=== PATIENT | female | born 1990 | race Caucasian/White ===

== ENCOUNTER 2019-12-08 11:30 | Outpatient (CLI) | payer OTHER, SELFPAY ==
--- NOTE | ~2019-12-08 | XR_ITS ---
XR chest 2V DATE: 12/08/2019 11:48 INDICATION: Fever TECHNIQUE: PA and lateral views chest COMPARISON: 01/16/2016 and lateral chest FINDINGS: Normal heart size. No hilar or mediastinal enlargement. No pulmonary infiltrate or consolid ation, pleural effusion or pulmonary vascular congestion or pneumothorax. Surgical clips, right upper quadrant, consistent with cholecystectomy. IMPRESSION: No active cardiopulmonary disease Reviewed, dictated and finalized at location A.
== END 2019-12-08 11:31 | disposition home or self-care (01) ==
PROVIDERS: PCP Family Medicine; Visit Provider Physician Assistant Medical
DX: R50.9 Fever, unspecified (principal)
CPT/HCPCS: 71046

== ENCOUNTER 2020-06-09 09:23 | Emergency (ER) | payer OTHER, SELFPAY ==
[2020-06-09] VITALS (11 sets, daily range): BP systolic 132–150; BP diastolic 72–81; PULSE 76–100; RESP 14–25; TEMP 36.7; O2SAT 97–100
--- NOTE | ~2020-06-09 | XR_ITS ---
XR chest 1V portable DATE: 06/09/2020 09:55 INDICATION: Cough, shortness of breath TECHNIQUE: Portable upright AP chest on 06/09/2020 at 0948 hours COMPARISON: 12/08/2019 PA and lateral chest FINDINGS: Normal heart size. No hilar or mediastinal enlargement. No pulmonary infiltrate or consolid ation, pleural effusion or pulmonary vascular congestion or pneumothorax is detected. Included skelet al structures are unremarkable. IMPRESSION: No active cardiopulmonary disease Reviewed, dictated and finalized at location B. [employer]
[2020-06-09 10:26] LABS: Basophils Percent Auto 0.6 % (0.2-1.2); Eosinophils Absolute Auto 0.5 K/mm3 (0-0.3); Eosinophils Percent Auto 6.5 % (0-4.4); Hemoglobin 12.2 g/dL (12.0-15.0); Immature Granulocyte Absolute 0.01 K/mm3 (0.00-0.031); Immature Granulocyte Percent A 0.1 % (0-0.5); Lymphocytes Absolute Auto 1.83 K/mm3 (0.9-3.2); Lymphocytes Percent Auto 25.7 % (18.3-44.2); Mean Corpuscular HGB Conc 31.3 g/dl (32-36); Mean Corpuscular Hemoglobin 25.7 pg (26-34); Mean Corpuscular Volume 82.3 fl (80-100); Mean Platelet Volume 10.1 fl (7.4-10.4); Monocytes Absolute Auto 0.5 K/mm3 (0.1-0.6); Monocytes Percent Auto 7.2 % (2.6-8.5); Neutrophils Absolute Auto 4.3 K/mm3 (1.3-6.7); Neutrophils Percent Auto 59.9 % (45.5-73.1); Platelet Count Result 369 k/mm3 (150-375); Red Blood Count 4.74 M/mm3 (4.2-5.4); Red Cell Distribution Width 14.6 % (11.5-14.5); White Blood Count 7.1 K/mm3 (4.5-10.0)
[2020-06-09 11:07] LABS: Anion Gap 7 mmol/L (8-16); Blood Urea Nitrogen 10 mg/dL (7-17); Carbon Dioxide 30 mmol/L (22-30); Chloride 105 mmol/L (98-107); Estimated CRCL calculation 130 ml/min; Estimated Glomerular Filt Rate > 60; Glucose 89 mg/dL (65-105); Sodium 142 mmol/L (137-145)
[2020-06-09 11:20] LABS: D Dimer < 0.22 ug/mL (<0.48)
[2020-06-09] MEDS: IPRATROPIUM BR 0.02% INH SOLN 0.5 MG/2.5 ML VIAL INHALATION (11:27)
[2020-06-09] MEDS: ALBUTEROL SULFATE NEB 2.5 MG/0.5 ML INH 5 MG INHALATION (11:28)
[2020-06-09] MEDS: methylPREDNISolone SOD SUCC 125 MG VIAL IV PUSH (11:56)
--- NOTE | 2020-06-09 12:16 | ED.GENADULT ---
HPI - General Adult General Chief complaint: Shortness of Breath/Dyspnea Stated complaint: sob, covid + Nov 2 Time Seen by Provider: 06/09/20 09:31 Source: RN notes reviewed History of Present Illness HPI narrative: Patient presents emergency department from home for shortness of breath. Patient states she has a history of asthma and has been using her inhaler for the past 3 days with minimal relief. She states that she has a history of testing positive for COVID-19 on May 24 and had been feeling better until 3 days ago. She states that with her shortness of breath she is had nonproductive cough so is a low-grade fever. She denies any chest pain abdominal pain nausea vomiting or any other symptoms states she is out of her inhaler at this time Related Data Home Medications Medication Instructions Recorded Confirmed [id number] 1 cap PO Q4H PRN 06/03/19 05/18/20 50 mg-300 mg-40 mg capsule fluticasone propionate 50 2 spray NASAL DAILY 06/03/19 05/18/20 mcg/actuation nasal spray,suspension Allergies Allergy/AdvReac Type Severity Reaction Status Date / Time levofloxacin Allergy Severe Unknown Verified 06/09/20 09:34 amoxicillin Allergy Intermediate Unknown Verified 06/09/20 09:34 clavulanic acid Allergy Intermediate Unknown Verified 06/09/20 09:34 latex Allergy Intermediate Unknown Verified 06/09/20 09:34 alcohol Allergy Unknown ELOINA & Verified 06/09/20 09:34 ELOINA BRAND LOTIONS = RASH lanolin Allergy Unknown ELOINA & Verified 06/09/20 09:34 ELOINA BRAND = RASH morphine Allergy Unknown Unknown Verified 06/09/20 09:34 Penicillins Allergy Unknown Unknown Verified 06/09/20 09:34 petrolatum,white Allergy Unknown ELOINA & Verified 06/09/20 09:34 ELOINA BRAND = RASH propylene glycol Allergy Unknown ELOINA & Verified 06/09/20 09:34 ELOINA BRAND LOTIONS = RASH Review of Systems Review of Systems: Narrative: Gen.: Denies fevers or chills Eyes: Denies eye pain or visual change ENT: Denies congestion Respiratory: See HPI CV: Denies chest pain or palpitations GI: Denies abdominal pain nausea, emesis or diarrhea denies burning, urgency, frequency or hematuria Musculoskeletal: Denies back pain or muscle pain Neuro: Denies numbness, tingling, weakness or focal weakness Skin: Denies rash Except as documented, all other systems reviewed and negative [facility] Past Medical History Medical History (Updated 06/09/20 @ 12:19 by Mason Franklin DO) Asthma Family History Family History Grandparent Hypertension Family history of lung cancer Family history of lymphoma Family history of coronary artery disease Diabetes mellitus Social History Social History Smoking status: Current every day smoker Alcohol intake: never Substance use: never Gender identity (if verbalized by the patient): Female Exam Narrative: Exam Narrative: APPEARANCE: No acute distress, nontoxic, resting in bed EYES: EOMI HEENT: Normocephalic, atraumatic, OMM CARDIOVASCULAR: Regular rate and rhythm without murmurs rubs or gallops. Respiratory: No respiratory distress, mild wheezing upper lung abbott no rhonchi or rales ABDOMINAL: Soft, nontender, nondistended, no rebound or guarding MUSCULOSKELETAl: Moves all extremities. No clubbing, cyanosis or edema. NEURO: Awake and alert. Following commands, speech normal, no focal deficits SKIN:: Warm, dry. No rashes lesions or abrasions PSYCHIATRIC: Normal affect/mood, Course Course Emergency Course: Patient given breathing treatment in ED. Following this repeat lung exam clear all station bilaterally states she is feeling better Discussed with patient results of workup and diagnosis. Discussed need for follow-up with primary care, proper use of medication, and reasons to r
== END 2020-06-09 12:43 | disposition home or self-care (01) ==
PROVIDERS: Emergency Provider Emergency Medicine; PCP Family Medicine
DX: J45.901 Unspecified asthma with (acute) exacerbation (principal); Z86.19 Personal history of other infectious and parasitic diseases
CPT/HCPCS: 36415; 71045; 80048; 85025; 85380; 87804; 94640; 96374; 99284; J2930